=== PATIENT | female | born 1960 | race Caucasian/White ===

== ENCOUNTER 2019-10-22 09:13 | Day surgery (SDC) | payer BC ==
[~2019-10-22] VITALS: Ht 162.6 cm; Wt 54.4 kg
[~2019-10-22 09:13] MED LIST: LIOT5 PO
--- NOTE | 2019-10-22 10:38 | NUR ---
10/22/19 Cheryl Simeon PT. VERBALIZES HAVING RIGHT SIDE ABD. PAIN RATING "4-5" & DESCRIBES STINGING & BURNING. PT. VERBALIZES THIS IS WHY SHE IS HERE.
--- NOTE | 2019-10-22 12:01 | NUR ---
10/22/19 1201 Cheryl Rodriguez PT. VERBALIZES FEELING A LITTLE DIZZY & WANTS TO JUST SIT IN BED FOR A LITTLE BIT. PT. DRINKING HER JUICE & HER MOM IS AT HER BEDSIDE. CALL LIGHT IS WITHIN REACH & INSTRUCTED PT. TO CALL WHEN SHE FELT SHE WAS READY TO DRESS.
== END 2019-10-22 12:08 | disposition home or self-care (01) ==
LOC: ORSCSDS 09:13
PROVIDERS: Surgery
PROC: 0DBB8ZX Excision of Ileum, Via Natural or Artificial Opening Endoscopic, Diagnostic (ICD-10-PCS; principal; 2019-10-22 10:45)
DX: R19.4 Change in bowel habit (principal); R10.31 Right lower quadrant pain; K62.89 Other specified diseases of anus and rectum; Z79.899 Other long term (current) drug therapy
CPT/HCPCS: 88305; J2704; J7120